=== PATIENT | female | born 1960 | race African-American/Black ===

== ENCOUNTER 2021-07-19 22:34 | Emergency (ER) | payer MEDICAID, OTHER ==
[~2021-07-19] VITALS: Ht 162.6 cm; Wt 84.4 kg
[2021-07-20 03:10] LABS: Basophils # (auto) 0.1 10 ^3/uL (0-0.2); Basophils % (auto) 1.3 % (0.0-2.0); Eosinophils # (auto) 0.4 10 ^3/uL (0-0.8); Hematocrit 38.7 % (36.0-46.0); Hemoglobin 13.2 g/dL (12.2-16.2); Lymphocytes # (auto) 3.6 10 ^3/uL (0.4-5.4); Lymphocytes % (auto) 35.9 % (10.0-50.0); Mean Corpuscular Hemoglobin 30.7 pg (28.0-32.0); Mean Corpuscular Hgb Conc. 34.2 g/dL (32.0-36.0); Mean Corpuscular Volume 89.9 fL (80.0-100.0); Monocytes # (auto) 0.5 10 ^3/uL (0-1.3); Monocytes % (auto) 5.3 % (0.0-12.0); Neutrophils # (auto) 5.4 10 ^3/uL (1.6-8.6); Neutrophils % (auto) 53.5 % (37.0-80.0); Nucleated Red Blood Cells % 0.3 %; Red Cell Distribution Width 15.5 % (11.8-14.3); White Blood Cell 10.1 10^3/uL (4.4-10.8)
[2021-07-20 03:28] LABS: Calcium 11.1 mg/dL (8.5-10.1); Potassium 4.2 mmol/L (3.5-5.1)
[2021-07-20 03:31] LABS: Albumin 3.5 g/dL (3.4-5.0); BUN/Creatinine Ratio 13.8
[2021-07-20 03:34] LABS: Bilirubin, Total 0.3 mg/dL (0.2-1.0); Total Protein 6.7 g/dL (6.4-8.2)
[2021-07-20 04:39] LABS: Urine Bacteria NONE SEEN /hpf (None Seen); Urine Blood Negative /uL (Negative); Urine Specific Gravity 1.019 (1.001-1.035); Urine WBC 2 /hpf (0 - 5)
[2021-07-20 04:44] VITALS: BP 107/68
[2021-07-20] MEDS ORDERED: ALBU108A5 IN (04:57)
== END 2021-07-20 05:19 | disposition home or self-care (01) ==
LOC: ER 22:34
DX: R10.9 Unspecified abdominal pain (principal); R11.2 Nausea with vomiting, unspecified
CPT/HCPCS: 36415; 71045; 80053; 81001; 83690; 84484; 85025; 93005

== ENCOUNTER 2022-05-31 14:21 | Emergency (ER) | payer MEDICAID ==
[~2022-05-31] VITALS: Ht 162.6 cm; Wt 98.8 kg
[~2022-05-31 14:21] MED LIST: ALBU108A5 IN
[2022-05-31 15:53] VITALS: BP 151/98
[2022-05-31] MEDS ORDERED: PRED20TA2 PO (16:32)
[2022-05-31] MEDS ORDERED: PROM1SOL4 PO (16:32)
[2022-05-31] MEDS ORDERED: LEVO500T31 PO (16:32)
[2022-05-31 17:08] LABS: Urine Bacteria FEW /hpf (None Seen); Urine Blood Negative /uL (Negative); Urine Specific Gravity 1.018 (1.001-1.035); Urine WBC 3 /hpf (0 - 5)
== END 2022-05-31 16:37 | disposition home or self-care (01) ==
LOC: ER 14:21
DX: J20.9 Acute bronchitis, unspecified (principal); J45.909 Unspecified asthma, uncomplicated; E78.5 Hyperlipidemia, unspecified; I10 Essential (primary) hypertension
CPT/HCPCS: 71046; 81001